=== PATIENT | male | born 1960 | race Caucasian/White ===

== ENCOUNTER 2021-12-14 14:58 | Observation (INO) | payer OTHER ==
[2021-12-14] MEDS ORDERED: Sodium Chloride 0.9% 1,000 ML IV ONE (15:18)
[2021-12-14] MEDS ORDERED: Acetaminophen 325 MG Tab PO ONE (15:19)
[2021-12-14] MEDS ORDERED: Nitroglycerin 2% Oint 1 GM UD Packet TOP ONE (15:20)
[2021-12-14] MEDS ORDERED: Sodium Chloride 0.9% 10 ML Syringe FLUSH PRN ×2 (19:52)
[2021-12-14] MEDS: Losartan 100 MG Tab PO SCH (22:37)
[2021-12-14] MEDS: Aspirin 81 MG Tab.EC PO SCH (22:37)
[2021-12-14] MEDS: Enoxaparin 40 MG/0.4 ML Syringe SUBCUT SCH (22:38)
[2021-12-15 07:40] LABS: HEMOGLOBIN A1C 5.9 %
[2021-12-15] MEDS: Losartan 100 MG Tab PO SCH (09:50)
[2021-12-15] MEDS: Enoxaparin 40 MG/0.4 ML Syringe SUBCUT SCH (09:50)
[2021-12-15] MEDS: Aspirin 81 MG Tab.EC PO SCH (09:54)
[2021-12-15] MEDS ORDERED: atorvaSTATin 20 MG Tab PO SCH (13:30)
[2021-12-15] MEDS ORDERED: Pantoprazole 40 MG Tab.CR PO SCH (13:30)
[2021-12-15] MEDS ORDERED: Insulin Lispro 100 Unit/ML 3 ML KwikPen SUBCUT SCH (17:00)
== END 2021-12-15 16:09 | disposition home or self-care (01) ==
LOC: JD.ED 14:58 → JD.MS 18:46 → OBSVTOIN 19:52 → INTOOBSV 19:52
PROVIDERS: ADMIT Pediatrics; ATTEND Pediatrics
DX: R07.9 Chest pain, unspecified (principal); E78.00 Pure hypercholesterolemia, unspecified; I10 Essential (primary) hypertension; K21.9 Gastro-esophageal reflux disease without esophagitis; E66.9 Obesity, unspecified; Z79.899 Other long term (current) drug therapy; Z98.890 Other specified postprocedural states
CPT/HCPCS: 36415; 71045; 78452; 80053; 81001; 82553; 82947; 83036; 83690; 84484; 85007; 85027; 85379; 93005; 93017; 93306; 99285; A9270; A9500; J1650; J7030; 96372; G0378